=== PATIENT | male | born 1975 | race Caucasian/White ===

== ENCOUNTER 2017-03-31 14:27 | Emergency (ER) | payer SELFPAY ==
[2017-03-31] MEDS ORDERED: Ketorolac INJ* 60 MG/2 ML VIAL IM ONE (16:10)
[2017-03-31] MEDS ORDERED: Lidocaine 2% VISCOUS* 15 ML UDC SWISH SPIT ONE (16:18)
[2017-03-31] MEDS ORDERED: cefTRIAXone VIAL(*) 1,000 MG VIAL IM ONE (16:29)
[2017-03-31] MEDS ORDERED: Lidocaine 1% MPF* 2 ML VIAL INJ ONE (16:29)
--- NOTE | 2017-03-31 16:44 | UC ---
Dental HPI - HPI Summary HPI Summary: 41 y/o male presents to the urgent care c/o dental abscess in the RT upper jaw since yesterday. Pt states he fracture his tooth a while ago and now he thinks is infected. Pain is 8/10 and swelling is increasing to his RT cheek and lower eyelid and mild FERRELL. Pt has been taking Ibuprofen PO which alleviate his pain for a while. Pt denies fever, eye pain, SOB, chest pain, N/V/D. Pt states he is allergic to PNC as a baby, but he has taking Amoxicillin Po as an adult and he cope't develop any allergic reaction to it. - History of Current Complaint Chief Complaint: UCDentalProblem Stated Complaint: ABSCESS R SIDE OF MOUTH Time Seen by Provider: 03/31/17 15:53 Hx Obtained From: Patient Onset/Duration: Gradual Onset, Lasting Days - yesterday, Still Present Severity: Severe Pain Intensity: 8 Pain Scale Used: 0-10 Numeric Aggravating: Chewing Alleviating: OTC Meds Related History: Swelling - Allergies/Home Medications Allergies/Adverse Reactions: Allergies Allergy/AdvReac Type Severity Reaction Status Date / Time Penicillins [PCN] Allergy Unknown Verified 03/31/17 14:49 Reaction Details PMH/Surg Hx/FS Hx/Imm Hx Previously Healthy: Yes - Pt denies PMHX - Surgical History Surgical History: None - Family History Known Family History: Positive: None - Pt denies ruth ann FMHX - Social History Occupation: Employed Full-time Lives: With Family Alcohol Use: Rare Substance Use Type: None Smoking Status (MU): Heavy Every Day Tobacco Smoker Type: Cigarettes Review of Systems Constitutional: Negative Skin: Negative Eyes: Negative ENT: Other - Dental abscess with RT cheek swelling Respiratory: Negative Cardiovascular: Negative Gastrointestinal: Negative Genitourinary: Negative Motor: Negative Neurovascular: Negative Musculoskeletal: Negative Neurological: Negative Psychological: Negative Is Patient Immunocompromised?: No All Other Systems Reviewed And Are Negative: Yes Physical Exam Triage Information Reviewed: Yes Appearance: Well-Appearing, No Pain Distress, Well-Nourished, Obese Vital Signs: Initial Vital Signs Temp 98.9 F 03/31/17 14:47 Pulse 86 03/31/17 14:47 Resp 18 03/31/17 14:47 BP 128/93 03/31/17 14:47 Pulse Ox 97 03/31/17 14:47 Vital Signs Reviewed: Yes Eye Exam: Normal Eyes: Positive: Conjunctiva Clear - PERRLA, EOMI, No pain ENT Exam: Normal ENT: Positive: Normal ENT inspection, Hearing grossly normal, Pharynx normal, TMs normal. Negative: Nasal congestion, Nasal drainage, Tonsillar swelling, Tonsillar exudate Dental: Positive: Percussion Tenderness @ - RT upper jaw with a fracture canine #6 with sorouding erythema and moderate swelling. RT cheek with moderates swelling and tender to palpation., Gross Decay/Caries @ - Pt with poor dental hygiene, Cervical Lymphadenopathy - RT anterior cervical lymphadenopathy. Negative: Bleeding Neck exam: Normal Neck: Positive: Supple, Nontender Respiratory Exam: Normal Respiratory: Positive: Chest non-tender, Lungs clear, Normal breath sounds Cardiovascular Exam: Normal Cardiovascular: Positive: RRR, No Murmur, Pulses Normal, Brisk Capillary Refill Abdominal Exam: Normal Abdomen Description: Positive: Nontender, No Organomegaly, Soft. Negative: CVA Tenderness (R), CVA Tenderness (L) Bowel Sounds: Positive: Present Musculoskeletal Exam: Normal Musculoskeletal: Positive: Strength Intact, ROM Intact, No Edema Neurological Exam: Normal Psychological Exam: Normal Skin Exam: Normal Dental Complaint Course/Dx - Course Course Of Treatment: 41 y/o male presents to the urgent care c/o dental abscess in the RT upper jaw since yesterday. Pt states he fracture his tooth a while ago and now he thinks is infected. Pain is 8/10 and swelling is increasing to his RT cheek and lower eyelid and mild FERRELL. Pt has been taking Ibuprofen PO which alleviate his pain for a while. Pt denies fever, eye pain, SOB, chest pain , N/V/D. Pt states he is allergic to PNC as a baby, but he has taking Amoxicillin Po as an adult and he cope't develop any allergic reaction to it. HX obtained. Pt with a dental abscess and a fracture tooth #6 in the upper RT jaw. Pt given Toradol IM inj and Viscous Lidocaine for pain and Rocefin PO IM inj wihich he tolerated well. Pt was observed for 20 min. Pt's pain decrease. Pt felt better. Pt Rx Clindamycin 300mg PO and Ibuprofen PO to alleviate pain. Given a list of Dentist and strongly advised to f/u with a Dentist tomorrow.Advised If swelling increases and develops fever to please go immediately to the ER for further management. Pt understood and agreed with plan of care and left the clinic ambulating, A&OX3 - Differential Dx/Diagnosis Differential Diagnosis/Dx: Dental Abscess, Dental Caries, Fractured Tooth, Gingivitis, Peridontic Disease, Peritonsillar Abcess, Pharyngitis, Tonsillitis Provider Diagnoses: 1- Dental abscess. 2- Fracture tooth Discharge - Discharge Plan Condition: Stable Disposition: HOME Prescriptions: Clindamycin Cap(NF) [Clindamycin Cap 300 mg Cap(NF)] 300 mg PO QID #28 cap Ibuprofen TAB* [Motrin TAB* 800 MG] 800 mg PO Q6H #30 tab Patient Education Materials: Dental Abscess (ED) Referrals: Flora LOUISEP,Chey [Primary Care Provider] - 2 Days Additional Instructions: 1-Please take full course of antibiotic to avoid resistance. 2- Take Ibuprofen PO q6-8hrs as instructed after meals to alleviate pain and swelling. 3- F/u with a Dentist from the list given as soon as possible for further treatment. 4-If swelling increases and your develop fever please go immediately to the ER for further management
[2017-03-31 17:20] VITALS: BP 130/94
== END 2017-03-31 17:11 | disposition home or self-care (01) ==
LOC: UCEAST 14:27
DX: K04.7 Periapical abscess without sinus (principal); K03.81 Cracked tooth; E66.9 Obesity, unspecified; Z88.0 Allergy status to penicillin; F17.210 Nicotine dependence, cigarettes, uncomplicated
CPT/HCPCS: 96372; 99202; G0463; J0696; J1885